=== PATIENT | female | born 2000 | race Caucasian/White ===

== ENCOUNTER 2022-01-04 20:56 | Emergency (ER) | payer MEDICAID ==
[~2022-01-04] VITALS: Ht 165.1 cm; Wt 100.0 kg
[2022-01-04] MEDS ORDERED: ACETAMINOPHEN 325MG TABLET PO ONE (21:45)
[2022-01-05 00:40] VITALS: BP 129/73
== END 2022-01-05 00:40 | disposition home or self-care (01) ==
LOC: ER 20:56
DX: O26.892 Other specified pregnancy related conditions, second trimester (principal); R10.2 Pelvic and perineal pain; Z3A.14 14 weeks gestation of pregnancy; Z98.890 Other specified postprocedural states; V53.5XXA Driver of pick-up truck or van injured in collision with car, pick-up truck or van in traffic accident, initial encounter; Y93.89 Activity, other specified; Y92.488 Other paved roadways as the place of occurrence of the external cause
CPT/HCPCS: 76801; 99284